=== PATIENT | male | born 1990 | race Caucasian/White ===

== ENCOUNTER 2017-12-14 11:27 | Emergency (ER) | payer OTHER ==
[~2017-12-14] VITALS: Ht 170.2 cm; Wt 59.0 kg
[~2017-12-14 11:27] MED LIST: KETO10TA2 PO; ORPH100T PO
== END 2017-12-14 15:11 | disposition home or self-care (01) ==
LOC: ER 11:27
DX: B34.9 Viral infection, unspecified (principal)

== ENCOUNTER 2018-07-28 19:14 | Emergency (ER) | payer OTHER ==
[~2018-07-28] VITALS: Ht 167.6 cm; Wt 68.0 kg
== END 2018-07-28 22:33 | disposition home or self-care (01) ==
LOC: ER 19:14
DX: B34.9 Viral infection, unspecified (principal)

== ENCOUNTER → 2018-12-02 | Emergency (ER) | payer OTHER ==
[~2018-12-02] VITALS: Ht 167.6 cm; Wt 72.6 kg
== END | disposition left against medical advice (07) ==
LOC: ER 22:40
DX: Z53.20 Procedure and treatment not carried out because of patient's decision for unspecified reasons (principal)